=== PATIENT | female | born 1960 | race Caucasian/White ===

== ENCOUNTER 2021-01-28 12:28 | Inpatient (IN) | payer OTHER ==
[2021-01-28 13:13] VITALS: BMI 25.0
[2021-01-28] MEDS ORDERED: P-EPHED 60MG/TRIPROLIDI 2.5MG TABLET PO PRN (13:39)
[2021-01-28] MEDS ORDERED: MAGNESIUM HYDROX 2400MG/30ML ORAL SUSPENSION 30 ML CUP PO PRN (13:39)
[2021-01-28] MEDS ORDERED: MAGNESIUM CITRATE 300 ML BOTTLE PO PRN (13:39)
[2021-01-28] MEDS ORDERED: NICOTINE 10 MG CARTRIDGE (INHALER) IH PRN (13:39)
[2021-01-28] MEDS ORDERED: MAG HYDROX/AL HYDROX/SIMETH 30 ML UNIT-DOSE CUP PO PRN (13:39)
[2021-01-28] MEDS ORDERED: LOPERAMIDE HCL 2 MG CAPSULE PO PRN (13:39)
[2021-01-28] MEDS ORDERED: guaiFENesin 200 MG/10 ML 10 ML UNIT-DOSE CUPS PO PRN (13:39)
[2021-01-28] MEDS ORDERED: TUBERCULIN PPD 5 TU/0.1ML VIAL ID ONE (14:57)
[2021-01-28 15:09] LABS: HEMATOCRIT 30.6 % (32.4-45.2); HEMOGLOBIN 9.7 GM/dL (10.7-15.3); MCH 27.2 pg (25.7-33.7); MCHC 31.8 g/dl (32.0-36.0); MEAN CELL VOLUME 85.6 fl (80-96); MEAN PLT VOLUME 9.1 fl (7.5-11.1); PLATELET COUNT 192 10^3/uL (134-434); RBC 3.58 M/mm3 (3.60-5.2); RDW 15.7 % (11.6-15.6); WHITE BLOOD COUNT 3.7 K/mm3 (4.0-10.0)
[2021-01-28 15:14] LABS: CREATININE 1.4 mg/dL (0.55-1.3)
[2021-01-28] MEDS: hydrOXYzine PAMOATE 25 MG CAPSULE (FP) PO SCH ×3 (15:15→21:40)
[2021-01-28] MEDS: NICOTINE 7 MG/24 HOURS TOPICAL PATCH TD SCH (15:15)
[2021-01-28] MEDS: PRENATAL VITAMINS W/ FOLIC ACID TABLET (FP) PO SCH (15:15)
[2021-01-28 15:17] LABS: TOT PROT 8.6 g/dl (6.4-8.2)
[2021-01-28 15:19] LABS: ALBUMIN 2.9 g/dl (3.4-5.0); BLOOD UREA NITROGEN 21.1 mg/dL (7-18); CALCIUM 8.6 mg/dL (8.5-10.1)
[2021-01-28 15:28] LABS: BILIRUBIN,TOTAL 0.2 mg/dL (0.2-1)
[2021-01-28 16:06] LABS: SYPHILIS W/ RPR CONF REACTIVE (NONREACTIVE)
[2021-01-28] MEDS: THIAMINE HCL 100 MG TABLET (FP) PO SCH (21:40)
[2021-01-28] MEDS: MELATONIN 5 MG TABLETS PO SCH (21:40)
[2021-01-29] MEDS: ACETAMINOPHEN 325 MG TABLET (FP) PO PRN (06:50)
[2021-01-29] MEDS: hydrOXYzine PAMOATE 25 MG CAPSULE (FP) PO SCH ×5 (06:51→23:38)
[2021-01-29] MEDS ORDERED: methaDONE HCL 10 MG TABLET PO ONE (09:10)
[2021-01-29] MEDS ORDERED: methaDONE 40 MG, methaDONE 30 MG PO ONE (09:20)
[2021-01-29] MEDS ORDERED: methaDONE HCL 40 MG DISPERSABLE TABLET ONE (09:26)
[2021-01-29] MEDS ORDERED: methaDONE HCL 10 MG TABLET ONE (09:26)
[2021-01-29] MEDS: NICOTINE 7 MG/24 HOURS TOPICAL PATCH TD SCH (10:39)
[2021-01-29] MEDS: PRENATAL VITAMINS W/ FOLIC ACID TABLET (FP) PO SCH (10:39)
[2021-01-29 15:58] LABS: EPI CELLS >36 /uL (0-25.1); HYALINE CASTS 1 /uL (0-3.1); PH,URINE 6.5 (5.0-8.0); URINE APPEARANCE CLEAR; URINE BACTERIA 1709 /uL (0-1359); URINE BILIRUBIN NEGATIVE (NEGATIVE); URINE COLOR YELLOW; URINE GLUCOSE (UA) NEGATIVE (NEGATIVE); URINE KETONE NEGATIVE (NEGATIVE); URINE LEUK ESTERASE TRACE (NEGATIVE); URINE NITRITE NEGATIVE (NEGATIVE); URINE PROTEIN TRACE (NEGATIVE); URINE RBC 1 /uL (0-23.9); URINE UROBILINOGEN 0.2 mg/dL (0.2-1.0); URINE WBC 18 /uL (0-25.8)
[2021-01-29] MEDS: MELATONIN 5 MG TABLETS PO SCH (21:50)
[2021-01-29] MEDS: THIAMINE HCL 100 MG TABLET (FP) PO SCH (21:50)
[2021-01-29] MEDS: IBUPROFEN 400 MG TABLET (FP) PO PRN (21:52)
[2021-01-30] MEDS ORDERED: methaDONE HCL 10 MG TABLET PO SCH (06:00)
[2021-01-30] MEDS ORDERED: methaDONE HCL 10 MG TABLET ONE (06:56)
[2021-01-30] MEDS ORDERED: methaDONE HCL 40 MG DISPERSABLE TABLET ONE (06:56)
[2021-01-30] MEDS: hydrOXYzine PAMOATE 25 MG CAPSULE (FP) PO SCH ×5 (07:09→21:37)
[2021-01-30] MEDS: methaDONE 40 MG, methaDONE 30 MG PO SCH (07:09)
[2021-01-30] MEDS: NICOTINE 7 MG/24 HOURS TOPICAL PATCH TD SCH (10:13)
[2021-01-30] MEDS: PRENATAL VITAMINS W/ FOLIC ACID TABLET (FP) PO SCH (10:13)
[2021-01-30] MEDS: IBUPROFEN 400 MG TABLET (FP) PO PRN (10:15)
[2021-01-30] MEDS ORDERED: ALBUTEROL SO4 HFA INHALER IH PRN (15:01)
[2021-01-30] MEDS: amLODIPine BESYLATE 5 MG TABLET (FP) PO SCH (16:13)
[2021-01-30] MEDS: MELATONIN 5 MG TABLETS PO SCH (21:37)
[2021-01-30] MEDS: THIAMINE HCL 100 MG TABLET (FP) PO SCH (21:37)
[2021-01-30] MEDS: ACETAMINOPHEN 325 MG TABLET (FP) PO PRN (21:38)
[2021-01-31] MEDS ORDERED: methaDONE HCL 40 MG DISPERSABLE TABLET ONE (03:25)
[2021-01-31] MEDS ORDERED: methaDONE HCL 10 MG TABLET ONE (03:25)
[2021-01-31] MEDS: methaDONE 40 MG, methaDONE 30 MG PO SCH (06:15)
[2021-01-31] MEDS: hydrOXYzine PAMOATE 25 MG CAPSULE (FP) PO SCH ×5 (06:16→21:44)
[2021-01-31] MEDS: PRENATAL VITAMINS W/ FOLIC ACID TABLET (FP) PO SCH (10:24)
[2021-01-31] MEDS: amLODIPine BESYLATE 5 MG TABLET (FP) PO SCH (10:24)
[2021-01-31] MEDS: NICOTINE 7 MG/24 HOURS TOPICAL PATCH TD SCH (10:25)
[2021-01-31] MEDS ORDERED: NITROGLYCERIN SUBLINGUAL 1/200 0.3 MG BTL SL PRN (12:57)
[2021-01-31] MEDS: ASPIRIN 81 MG CHEWABLE TABLETS PO SCH (14:23)
[2021-01-31] MEDS: FOLIC ACID 1 MG TABLET (FP) PO SCH (14:23)
[2021-01-31] MEDS: BICTEGRAV/EMTRICIT/TENOFOV (BIKTARVY) 50-200-25 MG TABLET PO SCH (14:24)
[2021-01-31] MEDS: THIAMINE HCL 100 MG TABLET (FP) PO SCH (21:44)
[2021-01-31] MEDS: MONTELUKAST NA 10 MG TABLET PO SCH (21:44)
[2021-01-31] MEDS: ATORVASTATIN CA 20 MG TABLET (FP) PO SCH (21:45)
[2021-01-31] MEDS: risperiDONE 0.5 MG TABLET PO SCH (21:45)
[2021-01-31] MEDS ORDERED: SUVOREXANT 10 MG TABLET PO PRN (22:00)
[2021-02-01] MEDS ORDERED: methaDONE HCL 10 MG TABLET ONE (02:03)
[2021-02-01] MEDS ORDERED: methaDONE HCL 40 MG DISPERSABLE TABLET ONE (02:03)
[2021-02-01] MEDS: methaDONE 40 MG, methaDONE 30 MG PO SCH (06:15)
[2021-02-01] MEDS: hydrOXYzine PAMOATE 25 MG CAPSULE (FP) PO SCH ×5 (06:16→21:31)
[2021-02-01] MEDS ORDERED: METHOTREXATE 2.5 MG TABLET PO SCH (10:00)
[2021-02-01] MEDS ORDERED: LOSARTAN 50MG/HCTZ 12.5MG 1 TAB PO SCH (10:00)
[2021-02-01] MEDS: HYDROCHLOROTHIAZIDE 12.5 MG CAPSULE (FP) PO SCH (10:26)
[2021-02-01] MEDS: MULTIVITAMINS (DAILY MVI) TABLET (FP) PO SCH (10:26)
[2021-02-01] MEDS: amLODIPine BESYLATE 5 MG TABLET (FP) PO SCH (10:26)
[2021-02-01] MEDS: ASPIRIN 81 MG CHEWABLE TABLETS PO SCH (10:26)
[2021-02-01] MEDS: LOSARTAN POTASSIUM 50 MG TABLET PO SCH (10:26)
[2021-02-01] MEDS: risperiDONE 0.5 MG TABLET PO SCH ×2 (10:26→22:25)
[2021-02-01] MEDS: FOLIC ACID 1 MG TABLET (FP) PO SCH (10:26)
[2021-02-01] MEDS: NICOTINE 7 MG/24 HOURS TOPICAL PATCH TD SCH (10:30)
[2021-02-01] MEDS: BICTEGRAV/EMTRICIT/TENOFOV (BIKTARVY) 50-200-25 MG TABLET PO SCH (11:34)
[2021-02-01] MEDS: ACETAMINOPHEN 325 MG TABLET (FP) PO PRN (17:54)
[2021-02-01] MEDS: THIAMINE HCL 100 MG TABLET (FP) PO SCH (21:30)
[2021-02-01] MEDS: ATORVASTATIN CA 20 MG TABLET (FP) PO SCH (21:30)
[2021-02-01] MEDS: MONTELUKAST NA 10 MG TABLET PO SCH (21:31)
[2021-02-02] MEDS ORDERED: methaDONE HCL 10 MG TABLET ONE (04:18)
[2021-02-02] MEDS ORDERED: methaDONE HCL 40 MG DISPERSABLE TABLET ONE (04:18)
[2021-02-02] MEDS: methaDONE 40 MG, methaDONE 30 MG PO SCH (06:18)
[2021-02-02] MEDS: hydrOXYzine PAMOATE 25 MG CAPSULE (FP) PO SCH ×2 (06:19→09:40)
[2021-02-02 07:19] VITALS: TEMP 97.2
[2021-02-02] MEDS: FOLIC ACID 1 MG TABLET (FP) PO SCH (09:37)
[2021-02-02] MEDS: BICTEGRAV/EMTRICIT/TENOFOV (BIKTARVY) 50-200-25 MG TABLET PO SCH (09:38)
[2021-02-02] MEDS: amLODIPine BESYLATE 5 MG TABLET (FP) PO SCH (09:38)
[2021-02-02] MEDS: ASPIRIN 81 MG CHEWABLE TABLETS PO SCH (09:38)
[2021-02-02] MEDS: HYDROCHLOROTHIAZIDE 12.5 MG CAPSULE (FP) PO SCH (09:38)
[2021-02-02] MEDS: LOSARTAN POTASSIUM 50 MG TABLET PO SCH (09:38)
[2021-02-02] MEDS: NICOTINE 7 MG/24 HOURS TOPICAL PATCH TD SCH (09:39)
[2021-02-02] MEDS: risperiDONE 0.5 MG TABLET PO SCH (09:39)
[2021-02-02] MEDS: MULTIVITAMINS (DAILY MVI) TABLET (FP) PO SCH (09:40)
[2021-02-02] MEDS: ACETAMINOPHEN 325 MG TABLET (FP) PO PRN (09:42)
[2021-02-02 09:45] VITALS: BP 109/72; PULSE 80
== END 2021-02-02 11:46 | disposition home or self-care (01) | DRG 772 ==
LOC: YASAS 12:28 → Y5N 13:57
PROVIDERS: ADMIT Allergy & Immunology; ATTEND Allergy & Immunology
PROC: HZ42ZZZ Group Counseling for Substance Abuse Treatment, Cognitive-Behavioral (ICD-10-PCS; principal; 2021-01-28)
DX: F11.20 Opioid dependence, uncomplicated (principal); F14.20 Cocaine dependence, uncomplicated; F17.210 Nicotine dependence, cigarettes, uncomplicated; F25.9 Schizoaffective disorder, unspecified; F19.24 Other psychoactive substance dependence with psychoactive substance-induced mood disorder; M06.9 Rheumatoid arthritis, unspecified; E78.5 Hyperlipidemia, unspecified; Z21 Asymptomatic human immunodeficiency virus [HIV] infection status; M32.9 Systemic lupus erythematosus, unspecified; M54.59 Other low back pain; G89.29 Other chronic pain; Z85.528 Personal history of other malignant neoplasm of kidney; R26.2 Difficulty in walking, not elsewhere classified; Z99.89 Dependence on other enabling machines and devices; Z90.5 Acquired absence of kidney; Z86.19 Personal history of other infectious and parasitic diseases; Z56.0 Unemployment, unspecified
CPT/HCPCS: 36415; 80053; 81003; 85027; 86593; 86780; 86803; 87522; 87811; J8610